=== PATIENT | female | born 1970 | race Asian ===

== ENCOUNTER 2016-09-12 16:34 | Emergency (ER) | payer OTHER ==
[~2016-09-12] VITALS: Ht 165.1 cm; Wt 87.0 kg
[2016-09-12] MEDS ORDERED: LEVO100T5 PO (17:20)
[2016-09-12] MEDS ORDERED: SODIUM CHLORIDE FLUSH 10ML SYR IVF ONE (17:30)
[2016-09-12 18:31] LABS: IS PT STATUS REG ER OR PRE ER? YES
[2016-09-12 19:43] LABS: BLOOD UREA NITROGEN 19 mg/dL (7-18)
[2016-09-12] MEDS ORDERED: OMNIPAQUE 350 MG/ML, 100ML BOTTLE ONE (20:09)
[2016-09-12 20:25] VITALS: BP 155/109
== END 2016-09-12 20:29 | disposition home or self-care (01) ==
LOC: ED 20:15
DX: E03.9 Hypothyroidism, unspecified (principal); J02.0 Streptococcal pharyngitis
CPT/HCPCS: 36415; 70491; 71010; 80048; 82040; 84439; 84443; 84484; 84703; 85025; 86308; 93005; 99285; Q9967

== ENCOUNTER 2016-09-17 16:18 | Emergency (ER) | payer OTHER ==
[~2016-09-17] VITALS: Ht 167.6 cm; Wt 88.2 kg
[~2016-09-17 16:18] MED LIST: LEVO100T5 PO
[2016-09-17] MEDS ORDERED: AMOX875T PO (16:46)
[2016-09-17 17:15] LABS: PATH.CAST-FLAG NOT PRESENT; SPERM-FLAG NOT PRESENT; SRC-FLAG NOT PRESENT; XTAL-FLAG NOT PRESENT; YLC-FLAG NOT PRESENT
[2016-09-17 17:23] LABS: ASPARTATE AMINO TRANSFERASE 86 U/L (15-37); BLOOD UREA NITROGEN 16 mg/dL (7-18)
[2016-09-17 18:06] VITALS: BP 154/105
== END 2016-09-17 19:18 | disposition home or self-care (01) ==
LOC: ED 19:00
DX: N39.0 Urinary tract infection, site not specified (principal); R10.32 Left lower quadrant pain; E03.9 Hypothyroidism, unspecified
CPT/HCPCS: 36415; 76830; 80053; 81001; 84703; 85025